=== PATIENT | male | born 1955 | race African-American/Black ===

== ENCOUNTER 2018-03-30 11:09 | Emergency (ER) | payer SELFPAY ==
[~2018-03-30] VITALS: Ht 177.8 cm; Wt 66.0 kg
[2018-03-30] MEDS ORDERED: ACETAMINOPHEN 325MG TABLET PO STA (14:48)
[2018-03-30 15:29] LABS: HEMATOCRIT. 41.3 % (42.0-52.0); HEMOGLOBIN. 14.5 g/dL (14.0-18.0); MEAN CORPUSCULAR HEMOGLOBIN 32.5 pg (28.0-32.0); MEAN CORPUSCULAR VOLUME 92.5 fL (80.0-94.0); PLATELET 131 x1000/uL (130-400); RED BLOOD CELL COUNT 4.47 mill/uL (4.7-6.1); RED CELL DISTRIBUTION WIDTH 12.5 % (11.6-14.6)
[2018-03-30 15:30] LABS: CLARITY URINE CLOUDY (CLEAR); COLOR URINE ORANGE (YELLOW); KETONES URINE 1+ (NEGATIVE); LEUKOCYTE ESTERASE URINE 2+ (NEGATIVE); NITRITE URINE POSITIVE (NEGATIVE); OCCULT BLOOD URINE 2+ (NEGATIVE); PROTEIN URINE 1+ (NEGATIVE); SPECIFIC GRAVITY URINE 1.033 (1.005-1.030)
[2018-03-30 15:33] LABS: CHLORIDE 99 mEq/L (98-107)
[2018-03-30 15:34] LABS: PROTHROMBIN TIME 10.3 sec (9.1-11.1)
[2018-03-30] MEDS ORDERED: SODIUM CHLORIDE 0.9% 1,000 ML IV ONE ×2 (15:52→16:26)
[2018-03-30 16:08] LABS: PLATELET ESTIMATE NORMAL
[2018-03-30] MEDS ORDERED: LEVOFLOXACIN 750MG PREMIX 150 ML IV ONE (16:30)
[2018-03-30 18:11] VITALS: BP 110/62
== END 2018-03-30 18:59 | disposition home or self-care (01) ==
LOC: ER 11:09 → CANBEDREQ 18:46 → ER 18:59
DX: N39.0 Urinary tract infection, site not specified (principal); D72.829 Elevated white blood cell count, unspecified; N28.9 Disorder of kidney and ureter, unspecified
CPT/HCPCS: 36415; 71045; 80053; 81003; 83605; 84145; 84484; 85025; 85610; 87040; 87077; 87086; 87186; 93005; 96361; 96365; 99284; J1956; J7030